=== PATIENT | male | born 1955 | race Caucasian/White ===

== ENCOUNTER → 2020-10-03 12:58 | Outpatient (CLI) | payer MEDICARE, OTHER, SELFPAY ==
[2020-10-03] MEDS: COVID-19 VACC #1, MRNA(MOD) 100 MCG/0.5 ML VIAL IM (13:03)
== END ==
PROVIDERS: Visit Provider Internal Medicine
DX: Z23 Encounter for immunization (principal)
CPT/HCPCS: 0011A; 91301

== ENCOUNTER → 2020-10-31 13:14 | Outpatient (CLI) | payer MEDICARE, OTHER, SELFPAY ==
[2020-10-31] MEDS: COVID-19 VACC #2, MRNA(MOD) 100 MCG/0.5 ML VIAL IM (13:20)
== END ==
PROVIDERS: Visit Provider Internal Medicine
DX: Z23 Encounter for immunization (principal)
CPT/HCPCS: 0012A; 91301

== ENCOUNTER → 2020-12-28 12:04 | Outpatient (CLI) | payer MEDICARE, OTHER, SELFPAY | PROVIDERS: Referring Provider Student in an Organized Health Care Education/Training Program; Visit Provider Student in an Organized Health Care Education/Training Program | DX: N41.9 Inflammatory disease of prostate, unspecified (principal) | CPT/HCPCS: 36415; 84153 ==

== ENCOUNTER → 2023-01-10 07:29 | Outpatient (CLI) | payer MEDICARE, OTHER, SELFPAY ==
[2023-01-10 08:35] LABS: Add Manual Diff / Slide Review NO; Basophils Absolute Auto 0 /uL (0-100); Basophils Percent Auto 0.7 % (0-2); Eosinophils Absolute Auto 100 /uL (0-450); Eosinophils Percent Auto 1.8 % (2-4); Hematocrit 44.4 % (41-53); Hemoglobin 15.5 g/dL (13.5-17.5); Lymphocytes Absolute Auto 1900 /uL (1100-4500); Lymphocytes Percent Auto 42.2 % (25-40); Mean Corpuscular Hemoglobin 32.7 PG (26-34); Mean Corpuscular Volume 93.6 fL (80-100); Monocytes Absolute Auto 400 /uL (0-900); Monocytes Percent Auto 9.6 % (3-14); Neutrophils Absolute Auto 2000 /uL (1500-7000); Neutrophils Percent Auto 45.7 % (50-75); Platelet Count 238 X10^3/uL (150-400); Red Blood Cell Count 4.75 X10^6/uL (4.5-5.9); Red Cell Distribution Width 13.6 % (11.6-14.8); White Blood Cell Count 4.4 X10^3/uL (4.5-11.0)
[2023-01-10 08:55] LABS: Alanine Aminotransferase 24 IU/L (<50); Albumin 4.2 g/dL (3.5-5.0); Albumin Globulin Ratio 1.6 (1.0-2.8); Alkaline Phosphatase 50 U/L (38-126); Aspartate Aminotransferase 31 IU/L (17-59); BUN Creatinine Ratio 14.1 (6-22); Bilirubin Total 0.8 mg/dL (0.2-1.3); Blood Urea Nitrogen 13 mg/dL (9-20); Calcium 9.3 mg/dL (8.4-10.2); Carbon Dioxide 25 mmol/L (22-32); Chloride 106 mmol/L (98-107); Cholesterol 231 mg/dL (140-199); Estimated Glomerular Filt Rate > 60 mL/min (>60); Globulin 2.7 g/dL (1.7-4.1); Glucose 94 mg/dL (80-110); HDL Cholesterol 48 mg/dL (40-60); HEMOLYSIS < 15 (0-50); LDL Cholesterol Calculated 168 mg/dL (<100); Potassium 4.6 mmol/L (3.4-5.1); Sodium 140 mmol/L (137-145); Total Protein 6.9 g/dL (6.3-8.2); Triglycerides 74 mg/dL (35-150)
[2023-01-11 01:54] LABS: Labcorp Hemoglobin (Hb) A1c 5.8 % (4.8-5.6)
[2023-01-14 07:09] LABS: PSA Free % 31.3 % (.); PSA, Total 1.5 ng/mL (0.0-4.0)
== END ==
PROVIDERS: PCP Internal Medicine; Referring Provider Internal Medicine; Visit Provider Internal Medicine
DX: E78.5 Hyperlipidemia, unspecified (principal); N40.1 Benign prostatic hyperplasia with lower urinary tract symptoms
CPT/HCPCS: 36415; 80053; 80061; 83036; 84153; 84154; 85025

== ENCOUNTER 2024-03-01 06:55 | Day surgery (SDC) | payer MEDICARE, SELFPAY ==
--- NOTE | 2024-03-01 | PATH_ITS ---
[facility] Accession Number: [id number] No. of containers..03 Tissue . 01 Material submitted: . PART A: colon - DESCENDING COLON PART B: colon - CECUM PART C: colon - ASCENDING COLON . 01 Diagnosis: A. Colon, descending, biopsy: Tubular adenoma. -- B. Colon, cecum, biopsy: colonic mucosa with active colitis and histologic features suggestive of inflammatory polyp in the right colonoscopy settings. Negative for dysplasia or malignancy. -- C. Colon, ascending, biopsy: Inflammatory polyp. Negative for dysplasia or malignancy. TXN 03/03/2024 1438 Local . 01 Electronically signed: . Anam Lomeli MD, Pathologist NPI- [id number] . 01 Gross description: . Part A: DESCENDING COLON: Received in formalin is 1 fragment(s) of adkins, soft tissue measuring 0.3 x 0.3 x 0.3 cm submitted entirely in 1 cassette(s) Part B: CECUM: Received in formalin is 1 fragment(s) of adkins, soft tissue measuring 0.5 x 0.3 x 0.2 cm submitted entirely in 1 cassette(s) Part C: ASCENDING COLON: Received in formalin is 1 fragment(s) of adkins, soft tissue measuring 0.6 x 0.3 x 0.3 cm submitted entirely in 1 cassette(s) /ROBERT 03/02/2024 0116 Local . 01 Pathologist provided ICD-10: D12.6 . 01 CPT . 494806, 678096, [id number] Specimen Comment: A courtesy copy of this report has been sent to [phone] Performed at: [address] [facility], [place], [place] [id number] MD Scottie Wyatt MD Phone: [phone]
[2024-03-01 07:25] VITALS: BP 123/80; PULSE 69; RESP 14; TEMP 36.3; O2SAT 98
[2024-03-01] MEDS: LACTATED RINGERS 1,000 ML 120 ML IV (07:30)
[2024-03-01] MEDS: LACTATED RINGERS 1,000 ML 42 ML IV (07:39)
--- NOTE | 2024-03-01 07:53 | P.HP_ITS ---
History of Present Illness History of Present Illness Date Patient Seen: 03/01/24 Time Patient Seen: 07:53 Chief complaint: Colonoscopy Narrative: 68-year-old here for colonoscopy. He reports a colonoscopy with colon polyps down in the [place] area in 2019 and is here for surveillance. FOR[facility], [facility] Medical History History of colonic polyps Primary osteoarthritis involving multiple joints Impaired fasting glucose Mixed hyperlipidemia Shoulder pain (~2020) Hip pain (~2020) Hand pain (~2020) COVID-19 (~2021) Chicken pox (~1979) Pseudoexfoliation syndrome (~2020) BPH (benign prostatic hyperplasia) (~2020) Colon polyps (~2018) Surgical History Anesthesia History of foot surgery (~2004) Family History Father Cancer History of heart disease Creutzfeldt Gildardo disease Mother Cancer Hyperlipidemia Social History Smoking Status: Never smoker alcohol intake: current Meds Home Medications and Allergies Home Medications Medication Instructions Recorded Confirmed Type cholecalciferol (vitamin D3) 125 125 mcg PO DAILY 04/21/23 03/01/24 History mcg (5,000 unit) capsule coenzyme Q10 100 mg capsule (Co 100 mg PO DAILY 04/21/23 03/01/24 History Q-10) omega-3 fatty acids 1,000 mg 1,000 mg PO DAILY 04/21/23 03/01/24 History capsule rosuvastatin 10 mg tablet 10 mg PO DAILY #90 tabs 04/21/23 03/01/24 Rx turmeric root extract 500 mg tablet 1,000 mg PO DAILY 04/21/23 03/01/24 History vitamin K2 1 cap PO DAILY 04/21/23 03/01/24 History Allergies Allergy/AdvReac Type Severity Reaction Status Date / Time atorvastatin [From Lipitor] AdvReac Severe brain fog Verified 03/01/24 07:32 pravastatin AdvReac Severe brain fog Verified 03/01/24 07:32 Review of Systems Review of Systems ROS: Yes All systems reviewed with the patient and are negative except as otherwise documented Exam Vital Signs (past 8 hours): - 03/01/24 07:25 Temperature 97.4 F L Pulse Rate 69 Respiratory Rate 14 Blood Pressure 123/80 Pulse Oximetry 98 Oxygen Delivery Method Room Air Oxygen Delivery Method Room Air Const General: cooperative HENMT Head: normal to inspection Eyes General: appearance normal, both eyes and all related structures Neck Neck: normal visual inspection Chest Chest: normal inspection of the chest Resp Effort & Inspection: normal respiratory effort Cardio Rate: regular rate GI Inspection: normal to inspection Skin General: no rashes or lesions noted Neuro General: patient alert and patient awake Extrem General: normal to inspection and no pedal edema Psych Appearance: grossly normal Assessment & Plan Assessment & Plan narrative: 68-year-old male with a personal history of colon polyps. Surveillance colonoscopy is pursued today.
--- NOTE | 2024-03-01 07:54 | PM.PREOP ---
Pre-operative Note Interval Note History & Physical reviewed/Exam performed by Physician: Yes Changes to H&P: No ASA Class (for procedural sedation): II
--- NOTE | 2024-03-01 08:20 | P.OP.COLON_ITS ---
Operative Date/Time/Diagnoses Date of procedure: 03/01/24 Time of procedure: 08:21 Pre-op diagnosis: Personal history of colon polyps Post-op diagnosis: same Procedure & Clinicians Study performed: Colonoscopy with cold snare polypectomies Same procedure as scheduled: Yes Indications: Personal history of colon polyps Surgeon: Atif Sage Procedure Notes SCOAP/Timeout: Done Procedure in detail: After the risks and benefits were explained, written and verbal informed consent was obtained. The patient was brought into the procedure room and placed into the left lateral decubitus position. Please see anesthesia notes for sedation details. Digital rectal examination was accomplished. The scope was introduced into the patient and advanced under direct visualization to the cecum as identified by the appendiceal orifice and ileocecal valve. The scope was slowly withdrawn to carefully examine the mucosa for any defects or lesions. Comprehensive imaging was accomplished throughout the rectum including the d entate line. The colon was decompressed, the scope was then removed from the patient who tolerated the procedure well. Adult colonoscope Bowel prep adequate Scope withdrawal time: 9 minutes Sedation minutes: 17 Complications: none Impression: There were some scattered diverticula in the left colon. In the cecum, ascending colon, and descending colon there were 3 diminutive polyps ranging in size from 3 to 5 mm removed with cold snare. Grade 1-2 internal hemorrhoids were noted on direct views. No additional pathology was identified throughout. Endoscopic diagnosis 1. Colon polyps 2. Grade 1-2 hemorrhoids 3. Diverticulosis Post-procedure Plan for aftercare: 1. Await histology. 2. Repeat colonoscopy timing will be contingent on histopathology results. Disposition: PACU
[2024-03-01 08:21] VITALS: BP 91/61; PULSE 63; RESP 15; TEMP 36.3; O2SAT 92
[2024-03-01 08:26] VITALS: BP 96/56; PULSE 60; RESP 12; O2SAT 94
[2024-03-01 08:32] VITALS: BP 101/57; PULSE 60; RESP 12; O2SAT 93
[2024-03-01 08:39] VITALS: BP 94/70; PULSE 69; RESP 14; TEMP 36.7; O2SAT 93
== END 2024-03-01 08:53 | disposition home or self-care (01) ==
PROVIDERS: PCP Internal Medicine; Referring Provider Internal Medicine Gastroenterology; Visit Provider Internal Medicine Gastroenterology
PROC: 0DJD8ZZ Inspection of Lower Intestinal Tract, Via Natural or Artificial Opening Endoscopic (ICD-10-PCS; CPT 45378; principal; 2024-03-01 08:00)
DX: Z12.11 Encounter for screening for malignant neoplasm of colon (principal); Z86.010 Personal history of colon polyps; K64.0 First degree hemorrhoids; K57.30 Diverticulosis of large intestine without perforation or abscess without bleeding; D12.4 Benign neoplasm of descending colon; K52.9 Noninfective gastroenteritis and colitis, unspecified; K51.40 Inflammatory polyps of colon without complications
CPT/HCPCS: 45385; J2704

== ENCOUNTER → 2025-02-04 07:13 | Outpatient (CLI) | payer MEDICARE, SELFPAY ==
[2025-02-04 08:46] LABS: Aspartate Aminotransferase 26 IU/L (17-59); BUN Creatinine Ratio 23.7 (6-22); Blood Urea Nitrogen 23 mg/dL (9-20); Calcium 9.4 mg/dL (8.4-10.2); Carbon Dioxide 26 mmol/L (22-32); Chloride 106 mmol/L (98-107); Cholesterol 199 mg/dL (140-199); Estimated Glomerular Filt Rate > 60 mL/min (>60); Glucose 87 mg/dL (70-99); HDL Cholesterol 48 mg/dL (40-60); HEMOLYSIS < 15 (0-50); LDL Cholesterol Calculated 133 mg/dL (<100); Potassium 4.7 mmol/L (3.4-5.1); Sodium 139 mmol/L (137-145); Triglycerides 88 mg/dL (35-150)
[2025-02-04 08:53] LABS: Hemoglobin A1C% w Est Avg Glu 5.4 % (4.0-6.0)
[2025-02-04 09:19] LABS: Prostate Specific Antigen 2.53 ng/mL (0.10-4.00)
== END ==
PROVIDERS: PCP Internal Medicine; Referring Provider Internal Medicine; Visit Provider Internal Medicine
DX: R73.01 Impaired fasting glucose (principal); E78.2 Mixed hyperlipidemia
CPT/HCPCS: 36415; 80048; 80061; 83036; 84153; 84450

== ENCOUNTER → 2025-02-25 11:37 | Outpatient (CLI) | payer MEDICARE, SELFPAY ==
[2025-02-25 12:30] LABS: Add Manual Diff / Slide Review NO; Basophils Absolute Auto 0 /uL (0-100); Basophils Percent Auto 0.6 % (0-2); Eosinophils Absolute Auto 0 /uL (0-450); Eosinophils Percent Auto 0.7 % (2-4); Hematocrit 43.3 % (41-53); Hemoglobin 14.6 g/dL (13.5-17.5); Lymphocytes Absolute Auto 1600 /uL (1100-4500); Mean Corpuscular HGB Conc 33.6 % (30-36); Mean Corpuscular Hemoglobin 32.6 PG (26-34); Mean Corpuscular Volume 97.1 fL (80-100); Monocytes Absolute Auto 400 /uL (0-900); Monocytes Percent Auto 7.5 % (3-14); Neutrophils Absolute Auto 3400 /uL (1500-7000); Neutrophils Percent Auto 62.2 % (50-75); Platelet Count 221 X10^3/uL (150-400); Red Blood Cell Count 4.46 X10^6/uL (4.5-5.9); White Blood Cell Count 5.4 X10^3/uL (4.5-11.0)
[2025-02-25 12:57] LABS: Alanine Aminotransferase 20 IU/L (<50); Albumin 4.2 g/dL (3.5-5.0); Albumin Globulin Ratio 1.8 (1.0-2.8); Alkaline Phosphatase 49 U/L (38-126); Aspartate Aminotransferase 25 IU/L (17-59); BUN Creatinine Ratio 22.6 (6-22); Bilirubin Total 0.8 mg/dL (0.2-1.3); Blood Urea Nitrogen 24 mg/dL (9-20); Calcium 9.3 mg/dL (8.4-10.2); Carbon Dioxide 26 mmol/L (22-32); Chloride 106 mmol/L (98-107); Estimated Glomerular Filt Rate > 60 mL/min (>60); Globulin 2.3 g/dL (1.7-4.1); Glucose 87 mg/dL (70-99); HEMOLYSIS < 15 (0-50); Potassium 4.9 mmol/L (3.4-5.1); Sodium 138 mmol/L (137-145); Total Protein 6.5 g/dL (6.3-8.2)
== END ==
PROVIDERS: Internal Medicine; PCP Internal Medicine; Referring Provider Internal Medicine; Visit Provider Internal Medicine
DX: R73.01 Impaired fasting glucose (principal); I49.9 Cardiac arrhythmia, unspecified; R53.83 Other fatigue; E03.9 Hypothyroidism, unspecified; D64.9 Anemia, unspecified
CPT/HCPCS: 36415; 80053; 84443; 85025

== ENCOUNTER → 2025-02-28 12:43 | Outpatient (CLI) | payer MEDICARE, SELFPAY ==
--- NOTE | 2025-02-28 12:45 | DI.RAD.S_ITS ---
PROCEDURE: XR CHEST 2V INDICATIONS: afib TECHNIQUE: 2 views of the chest were acquired. COMPARISON: None. FINDINGS: Heart, mediastinum and pulmonary vascular: Heart is normal in size and configuration. Mediastinum is unremarkable. Pulmonary vascular is normal. Lungs: Vague 8 x 6 cm pleural based wedge-shaped area airspace disease in the posterior left lower lobe appreciated. This may represent fibrosis or less likely Hurley's hump Pleural spaces: Normal-no effusions or pneumothorax. Bones and soft tissues: Normal IMPRESSION: 8 x 6 cm pleural based region of airspace disease posterior left lower lobe. While this is likely merely benign focal fibrosis, the possibility of a pulmonary infarct , atypical pneumonia or even mass should be entertained. Please correlate with D-dimer to assess probability of pulmonary embolus. If elevated, than CT pulmonary angiogram should be performed. If not, suggest short-term radiographic follow-up in the next 2-3 weeks Dictated by: Otis Elliott M.D. on 03/01/2025 at 11:07 Approved by: Otis Elliott M.D. on 03/01/2025 at 11:10
== END ==
PROVIDERS: PCP Internal Medicine; Referring Provider Internal Medicine; Visit Provider Internal Medicine
DX: I48.0 Paroxysmal atrial fibrillation (principal)
CPT/HCPCS: 71046

== ENCOUNTER → 2025-03-17 06:49 | Outpatient (CLI) | payer MEDICARE, SELFPAY ==
--- NOTE | 2025-03-17 06:50 | DI.ECHO.S_ITS ---
[facility]+ [facility] : : [address] : : [place] : : [id number] : : Phone: [phone] Echocardiogram Report + + :Name: CUATE OLSON Study Date: 03/17/2025 Height: 75 in : :Hospital ReadingLocation: Weight: 222 lb : : Gender: Male BSA: 2.3 m2 : :: 1955 Age: 69 yrs BP: 116/80 mmHg: :Reason For Study: ATRIAL FIBRILLATION : :Ordering Physician: ELI, : :BRYCE Performed By: Anaid Heath : :Referring: BRYCE BENITEZ : + + Interpretation Summary Normal sinus rhythm with HR 49-68 pm. Normal LV size and wall thickness; mild cardiomyopathy; worst movement is demonstrated by anterolateral segment. EF is 45-50%. Mild RV dilation; otherwise normal chamber sizes. No prior echo avaiable for comparison. Procedure: A two-dimensional transthoracic echocardiogram with color flow and Doppler was performed. The study quality was technically adequate. There is no prior echocardiogram noted for this patient. The patient was in sinus rhythm with heart rates between 49-68 bpm during the exam. Left Ventricle: The left ventricle is normal in size and wall thickness. The ejection fraction is estimated to be 45-50%. Grade I diastolic dysfunction with normal left atrial pressure. Right Ventricle: The right ventricle is not well visualized. The right ventricle is mildly dilated. The right ventricular systolic function is normal. Atria: The left atrial size is normal. Right atrial size is normal. There is no Doppler evidence for an interatrial shunt. Mitral Valve: There is a flat closure plane of the the mitral valve leaflets. There is mild mitral regurgitation. Aortic Valve: The aortic valve is trileaflet. The aortic valve opens well. There is no aortic valve stenosis. No aortic regurgitation is present. Tricuspid Valve: The tricuspid valve leaflets are thin and pliable. There is mild tricuspid regurgitation. Pulmonic Valve: The pulmonic valve leaflets are thin and pliable; valve motion is normal. There is mild pulmonic regurgitation. Great Vessels: The aortic root is normal size. The ascending aorta is mildly enlarged. The IVC is dilated (diameter is greater than 2.1 cm) yet it collapses greater than 50% with a sniff. This suggests a right atrial pressure of 8 mm Hg. Pericardium/ Pleura There is no pericardial effusion. There is no pleural effusion. MMode/2D Measurements & Calculations LVIDd: 5.8 cm LVOT diam: 2.4 cm LVIDs: 4.1 cm Ao root diam: 3.9 cm FS: 30.1 % asc Aorta Diam: 4.4 cm EPSS: 0.74 cm Ao Arch Diam (Prox Trans): 3.5 cm IVSd: 0.81 cm LVPWd: 0.67 cm LV trujillo. diameter/BSA (cm/m^2): 2.5 LV sys. diameter/BSA (cm/m^2): 1.8 LA A2 area: 23.0 cm2 RA long axis: 5.7 cm LA A4 area: 21.4 cm2 RA area: 19.6 cm2 LA length (vol): 5.7 cm RA vol: 56.8 ml LA vol: 73.3 ml RA : 24.8 ml/m2 LA vol index: 31.9 ml/m2 IVC diam: 2.3 cm RVD1 (basal): 4.4 cm TAPSE: 2.2 cm Doppler Measurements & Calculations Ao V2 max: 93.1 cm/sec LVOT Max Vargas: 81.3 cm/sec Ao V2 mean: 65.2 cm/sec LV V1 max P.6 mmHg Ao max P.5 mmHg LV V1 VTI: 17.1 cm Ao mean P.9 mmHg TODD(I,D): 4.1 cm2 Ao V2 VTI: 19.1 cm TODD(V,D): 4.0 cm2 sev ratio: 0.89 TODD indexed to BSA (cm^2/m^2): 1.8 MV E max vargas: 49.3 cm/sec TR max vargas: 222.1 cm/sec MV A max vargas: 62.2 cm/sec TR max P.7 mmHg MV E/A: 0.79 PA V2 max: 120.4 cm/sec Med Peak E' Vargas: 5.5 cm/sec PA V2 mean: 77.0 cm/sec E/E' med: 8.9 PA mean P.8 mmHg Lat Peak E' Vargas: 7.3 cm/sec PA pr(Accel): 27.0 mmHg E/E' lat: 6.7 E/e' average: 7.8 MV dec time: 0.15 sec SV([facility]): 79.0 ml Electronically signed by: Kellie Guan M.D. on Reading Physician:03/18/2025 06:51 AM
== END ==
PROVIDERS: PCP Internal Medicine; Referring Provider Internal Medicine; Visit Provider Internal Medicine
DX: I08.1 Rheumatic disorders of both mitral and tricuspid valves (principal); I48.0 Paroxysmal atrial fibrillation; I77.89 Other specified disorders of arteries and arterioles
CPT/HCPCS: 93306

== ENCOUNTER → 2025-04-07 07:54 | Outpatient (CLI) | payer MEDICARE, SELFPAY | PROVIDERS: PCP Internal Medicine; Referring Provider Internal Medicine; Visit Provider Internal Medicine | DX: I49.9 Cardiac arrhythmia, unspecified (principal) | CPT/HCPCS: 93246 ==